=== PATIENT | male | born 1955 | race Caucasian/White ===

== ENCOUNTER 2024-06-06 14:44 | Inpatient (IN) | payer MEDICARE ==
[~2024-06-06] VITALS: Ht 182.9 cm; Wt 91.6 kg
[2024-06-06] MEDS ORDERED: MORPHINE SULFATE INJ 4 MG/ML DISP.SYRIN ONE ×2 (15:17→18:36)
[2024-06-06 15:44] LABS: BASOPHILS % (AUTO) 0.5 % (0.0-2.0); EOSINOPHILS # (AUTO) 0.1 K/uL (0.0-0.7); EOSINOPHILS % (AUTO) 2.2 % (0.0-6.0); HEMATOCRIT 38 % (39-51); HEMOGLOBIN 12.5 g/dL (13.5-17.5); LYMPHOCYTES % (AUTO) 17.6 % (20.0-44.0); MEAN CORPUSCULAR HEMOGLOBIN 30 PG (26.0-33.0); MEAN CORPUSCULAR HGB CONC 33 g/dl (31.0-36.0); MEAN CORPUSCULAR VOLUME 90 fL (80-96); MONOCYTES # (AUTO) 0.6 K/uL (0.1-1.30); MONOCYTES % (AUTO) 10.7 % (2.0-12.0); PLATELET COUNT (AUTO) 157 K/uL (150-450); RED BLOOD CELL COUNT(AUTO) 4.25 MIL/uL (4.5-6.0); RED CELL DISTRIBUTION WIDTH 14.6 % (11.5-15.0); WHITE BLOOD COUNT (AUTO) 5.8 K/uL (4.3-11.0)
[2024-06-06] MEDS: MORPHINE SULFATE INJ 2 MG/ML DISP.SYRIN IV ONE ×2 (15:44→18:40)
[2024-06-06 15:53] LABS: CALCIUM, SERUM 9.3 mg/dL (8.5-10.1); CREATININE 0.9 mg/dL (0.6-1.3); POTASSIUM 3.6 mmol/L (3.5-5.1)
[2024-06-06 16:00] LABS: ALBUMIN 3.5 g/dL (3.4-5.0); BILIRUBIN,DIRECT 0.3 mg/dL (0.0-0.2); BILIRUBIN,TOTAL 1.1 mg/dL (0.2-1.0); TOTAL PROTEIN, SERUM 6.8 g/dL (6.4-8.2)
[2024-06-06 16:05] LABS: INR 1.03 (0.91-1.10); PARTIAL THROMBOPLASTIN TIME 25.9 SEC (24.3-34.3); PROTHROMBIN TIME 10.9 SECS (9.2-11.1)
[2024-06-06] MEDS ORDERED: IV NS 0.9% 250 ML IV ONE (16:15)
[2024-06-06] MEDS ORDERED: IOHEXOL-300 100 ML VIAL IV ONE (16:15)
[2024-06-06] MEDS ORDERED: MAG HYDROX/AL HYDROX/SIMETH 30 ML UDC PO PRN (20:30)
[2024-06-06] MEDS ORDERED: Z GUARD REMEDY 4 OZ OINT TP PRN (20:30)
[2024-06-06] MEDS ORDERED: MAGNESIUM HYDROXIDE 30 ML UDC PO PRN (20:30)
[2024-06-06] MEDS ORDERED: ACETAMINOPHEN 325 MG TABLET PO PRN (20:30)
[2024-06-06] MEDS ORDERED: ZOLPIDEM TARTRATE 5 MG TABLET PO PRN (20:30)
[2024-06-06 22:30] VITALS: BP 136/71; TEMP 98.1; O2SAT 93
[2024-06-06] MEDS: MORPHINE SULFATE INJ 2 MG/ML DISP.SYRIN IV PRN (22:48)
[2024-06-07] MEDS: MORPHINE SULFATE INJ 4 MG/ML DISP.SYRIN IV PRN (01:54)
[2024-06-07 06:50] LABS: BASOPHILS % (AUTO) 0.3 % (0.0-2.0); EOSINOPHILS # (AUTO) 0.1 K/uL (0.0-0.7); EOSINOPHILS % (AUTO) 1.2 % (0.0-6.0); HEMATOCRIT 39 % (39-51); HEMOGLOBIN 13.1 g/dL (13.5-17.5); LYMPHOCYTES # (AUTO) 0.8 K/uL (0.8-4.8); MEAN CORPUSCULAR HEMOGLOBIN 30 PG (26.0-33.0); MEAN CORPUSCULAR HGB CONC 33 g/dl (31.0-36.0); MEAN CORPUSCULAR VOLUME 91 fL (80-96); MONOCYTES # (AUTO) 0.7 K/uL (0.1-1.30); MONOCYTES % (AUTO) 10.7 % (2.0-12.0); NEUTROPHILS % (AUTO) 75.8 % (43.0-81.0); PLATELET COUNT (AUTO) 157 K/uL (150-450); RED BLOOD CELL COUNT(AUTO) 4.32 MIL/uL (4.5-6.0); RED CELL DISTRIBUTION WIDTH 14.5 % (11.5-15.0); WHITE BLOOD COUNT (AUTO) 6.5 K/uL (4.3-11.0)
[2024-06-07 07:14] LABS: ALBUMIN 3.4 g/dL (3.4-5.0); BILIRUBIN,DIRECT 0.3 mg/dL (0.0-0.2); BILIRUBIN,TOTAL 1.6 mg/dL (0.2-1.0); CREATININE 0.8 mg/dL (0.6-1.3); MAGNESIUM 1.7 mg/dL (1.8-2.4); PHOSPHORUS 2.3 mg/dL (2.5-4.9); POTASSIUM 3.4 mmol/L (3.5-5.1); TOTAL PROTEIN, SERUM 6.8 g/dL (6.4-8.2)
[2024-06-07 07:30] LABS: THYROID STIMULATING HORMONE 1.73 uIU/mL (0.358-3.74)
[2024-06-07] MEDS: LIDOCAINE 5% (PATCH) 1 EA PATCH TP SCH (08:12)
[2024-06-07] MEDS: PANTOPRAZOLE 40 MG TABLET.DR PO SCH (08:12)
[2024-06-07] MEDS ORDERED: ASPI-1169 PO (08:15)
[2024-06-07] MEDS ORDERED: TRAZ-257 PO (08:15)
[2024-06-07] MEDS ORDERED: OMEP40CA21 PO (08:15)
[2024-06-07] MEDS ORDERED: PREG-59 PO (08:15)
[2024-06-07] MEDS ORDERED: GINK120T4 PO (08:15)
[2024-06-07] MEDS ORDERED: METO-357 PO (08:15)
[2024-06-07] MEDS ORDERED: PREG100C PO (08:15)
[2024-06-07] MEDS ORDERED: ROSU20TA32 PO (08:15)
[2024-06-07] MEDS ORDERED: GLIP10TA11 PO (08:15)
[2024-06-07] MEDS ORDERED: TERA10CA4 PO (08:15)
[2024-06-07] MEDS ORDERED: MEMA5TAB PO (08:15)
[2024-06-07 08:38] VITALS: BP 137/64; TEMP 98.4; O2SAT 93
[2024-06-07] MEDS ORDERED: TRAZODONE 50 MG TABLET PO PRN (09:00)
[2024-06-07] MEDS: glipiZIDE 10 MG TABLET PO SCH (09:20)
[2024-06-07] MEDS: PREGABALIN 100 MG CAPSULE PO SCH ×2 (09:22→17:06)
[2024-06-07] MEDS: MEMANTINE HCL 5 MG TABLET PO SCH (09:22)
[2024-06-07] MEDS: Magnesium 1GM/D5W 100ML PREMIX 100 ML IV SCH (09:23)
[2024-06-07] MEDS: ASPIRIN 81 MG TAB.CHEW PO SCH (09:23)
[2024-06-07] MEDS: POTASSIUM CHLORIDE 20 MEQ TAB.PRT.SR PO ONE (09:23)
[2024-06-07] MEDS: METOPROLOL SUCCINATE 50 MG TAB.SR.24H PO SCH (09:23)
[2024-06-07] MEDS: ENOXAPARIN SODIUM 40 MG/0.4 ML DISP.SYRIN SQ SCH (10:01)
[2024-06-07] MEDS: K PHOS NEUTRAL 250 MG TABLET PO ONE (15:17)
[2024-06-07 16:12] VITALS: BP 132/60; TEMP 98.8; O2SAT 90
[2024-06-07 20:25] VITALS: BP 138/68; TEMP 98.6; O2SAT 94
[2024-06-07 21:29] VITALS: BP 138/68; TEMP 98.6; O2SAT 94
[2024-06-08 07:01] LABS: CALCIUM, SERUM 9.4 mg/dL (8.5-10.1); CREATININE 0.9 mg/dL (0.6-1.3); PHOSPHORUS 2.7 mg/dL (2.5-4.9); POTASSIUM 4.1 mmol/L (3.5-5.1)
[2024-06-08 07:30] VITALS: BP 142/72; TEMP 97.3; O2SAT 93
[2024-06-08 08:45] VITALS: BP 142/72
[2024-06-08] MEDS: TERAZOSIN HCL 5 MG CAPSULE PO SCH (08:45)
[2024-06-08] MEDS ORDERED: HYDR-3972 PO (10:54)
== END 2024-06-08 13:30 | disposition home or self-care (01) | DRG 184 ==
LOC: ER 14:48 → TELE 20:42 → MED 06-07 03:21
PROVIDERS: ADMIT Nurse Practitioner Family; ATTEND Nurse Practitioner Acute Care
DX: S22.41XA Multiple fractures of ribs, right side, initial encounter for closed fracture (principal); J90 Pleural effusion, not elsewhere classified; J98.11 Atelectasis; W01.0XXA Fall on same level from slipping, tripping and stumbling without subsequent striking against object, initial encounter; Z95.1 Presence of aortocoronary bypass graft; E66.3 Overweight; D63.8 Anemia in other chronic diseases classified elsewhere; I10 Essential (primary) hypertension; I25.10 Atherosclerotic heart disease of native coronary artery without angina pectoris; R74.01 Elevation of levels of liver transaminase levels; E11.9 Type 2 diabetes mellitus without complications; Y93.9 Activity, unspecified; Y92.009 Unspecified place in unspecified non-institutional (private) residence as the place of occurrence of the external cause; Z68.27 Body mass index [BMI] 27.0-27.9, adult; Z79.84 Long term (current) use of oral hypoglycemic drugs
CPT/HCPCS: 36415; 71045-TC; 71260-TC; 80048-TC; 80076-TC; 83735-TC; 84100-TC; 84443-TC; 85025-TC; 85730-TC; 86850-TC; 97116-TC; 97530-TC; A4223; G0378; J1650; J2270; J3475; J7050; Q9967